=== PATIENT | male | born 1965 | race Caucasian/White ===

== ENCOUNTER 2022-02-04 15:45 | Emergency (ER) | payer OTHER ==
[~2022-02-04 15:45] MED LIST: GABAPENTIN800 MG PO; GLUCOPHAGE500 MG PO; LOVENOX SY40 MG/0.4 SQ; NORCO 7.5-3251 EACH PO; OMEPRAZOLE40 MG PO; VENTOLIN HFA 66.7 GM INH
== END 2022-02-04 16:30 | disposition left against medical advice (07) ==
LOC: ER1 15:45
DX: E11.65 Type 2 diabetes mellitus with hyperglycemia (principal); I10 Essential (primary) hypertension; F17.210 Nicotine dependence, cigarettes, uncomplicated; Z88.2 Allergy status to sulfonamides; Z88.0 Allergy status to penicillin
CPT/HCPCS: 99282

== ENCOUNTER 2022-02-21 08:15 | Emergency (ER) | payer OTHER ==
[2022-02-21 08:53] LABS: HEMOGLOBIN 14.1 gm/dl (14.0-17.5); RED BLOOD COUNT 4.49 M/UL (4.20-5.50); WHITE BLOOD COUNT 12.7 K/UL (4.5-11.0)
[2022-02-21 09:25] LABS: BUN/CREATININE RATIO 16 (0-10)
== END 2022-02-21 11:50 | disposition home or self-care (01) ==
LOC: ER1 08:15
PROVIDERS: Student in an Organized Health Care Education/Training Program
DX: R10.13 Epigastric pain (principal); K21.9 Gastro-esophageal reflux disease without esophagitis; E11.9 Type 2 diabetes mellitus without complications; I10 Essential (primary) hypertension; F17.210 Nicotine dependence, cigarettes, uncomplicated; Z88.0 Allergy status to penicillin; Z88.2 Allergy status to sulfonamides
CPT/HCPCS: 71045; 80053; 82550; 82553; 82962; 83690; 84484; 85025; 93005; 96374; 99283; C9113; Q9967